=== PATIENT | female | born 1990 | race Hispanic/Latino ===

== ENCOUNTER 2019-05-19 05:30 | Inpatient (IN) | payer MEDICAID, OTHER, SELFPAY ==
[2019-05-20] MEDS ORDERED: NS w/ Oxytocin 10 units 500 ML ONE (09:28)
[2019-05-20] MEDS ORDERED: Lidocaine 1% (PF) 30 ML VIAL SC PRN (09:33)
[2019-05-20] MEDS ORDERED: Lactated Ringer's 1,000 ML IV SCH (09:33)
[2019-05-20] MEDS ORDERED: Promethazine HCl 25 MG/ML VIAL IM PRN (09:33)
[2019-05-20] MEDS ORDERED: Diphenoxylate HCl/Atropine Tablet PO PRN (09:33)
[2019-05-20] MEDS ORDERED: Ondansetron PF 4 MG/2 ML Vial IVP PRN ×2 (09:33→14:36)
[2019-05-20] MEDS ORDERED: Butorphanol Tartrate 1 MG/ML VIAL SLOW IVP PRN (09:33)
[2019-05-20] MEDS ORDERED: HYDROcodone/Acetaminophen 5/325 mg Tablet PO PRN ×2 (09:33→14:36)
[2019-05-20] MEDS ORDERED: Ibuprofen 800 MG TAB PO PRN (09:33)
[2019-05-20] MEDS ORDERED: Methylergonovine 0.2 MG/ML VIAL IM PRN (09:33)
[2019-05-20] MEDS ORDERED: NS / Oxytocin 40 units/1000ml 1,000 ML IV PRN (09:33)
[2019-05-20] MEDS ORDERED: Carboprost 250 MCG/ML AMP IM PRN (09:33)
[2019-05-20] MEDS ORDERED: hydrALAZINE 20 MG/ML VIAL SLOW IVP PRN ×2 (09:33→14:36)
[2019-05-20] MEDS ORDERED: Misoprostol 200 MCG TAB PR PRN (09:33)
[2019-05-20] MEDS ORDERED: NS w/ Oxytocin 10 units 500 ML IV SCH ×2 (09:33)
[2019-05-20 09:43] VITALS: BMI 23.1
[2019-05-20 10:12] LABS: Hemoglobin 12.6 g/dL (12.0-16.0); Mean Corpuscular Hemoglobin 28.9 pg (27.0-31.0); Mean Corpuscular Volume 84.9 fL (78.0-98.0); Mean Platelet Volume 10.3 fL (7.4-10.4); Platelet Count 167 thou/uL (130-400); RBC Distribution Width 13.1 % (11.5-14.5); Red Blood Cell (RBC) Count 4.34 mill/uL (4.20-5.40); White Blood Cell (WBC) Count 6.1 thou/uL (4.8-10.8)
[2019-05-20 10:46] LABS: Hep B Surf Ag Non-Reactive S/CO (NonReactive); Syphilis Antibody Nonreactive (Nonreactive); Syphilis Antibody Index 0.05 S/CO (<1.00 Non-Reactive)
[2019-05-20] MEDS ORDERED: Milk Of Magnesia 30 ML UDCUP PO PRN (14:36)
[2019-05-20] MEDS ORDERED: NS / Oxytocin 40 units/1000ml 1,000 ML IV SCH (14:36)
[2019-05-20] MEDS ORDERED: Lanolin Ointment 7 GM TUBE TOP PRN (14:36)
[2019-05-20] MEDS ORDERED: Bisacodyl 10 MG SUPP PR PRN (14:36)
[2019-05-20] MEDS ORDERED: Benzocaine-Menthol 82.5 ML CAN TOP PRN (14:36)
[2019-05-20] MEDS ORDERED: Adacel (T-DAP) 0.5 ML SYRINGE IM ONE (14:36)
[2019-05-20] MEDS: HYDROcodone/Acetaminophen 5/325 mg Tablet PO PRN ×2 (15:10→21:26)
[2019-05-20] MEDS: Ferrous Sulfate 325 MG TAB PO SCH (16:41)
[2019-05-20] MEDS: Ibuprofen 800 MG TAB PO SCH (17:50)
[2019-05-20] MEDS: Misoprostol 200 MCG TAB PO SCH (18:20)
[2019-05-20] MEDS: Docusate Calcium (SURFAK) 240 MG CAP PO SCH (21:24)
[2019-05-21] MEDS: Misoprostol 200 MCG TAB PO SCH (00:32)
[2019-05-21] MEDS: Ibuprofen 800 MG TAB PO SCH ×2 (05:30→13:29)
[2019-05-21 06:37] LABS: Hemoglobin 9.7 g/dL (12.0-16.0); Mean Corpuscular HGB CONC 34.3 g/dL (32.0-36.0); Mean Corpuscular Hemoglobin 28.9 pg (27.0-31.0); Mean Corpuscular Volume 84.3 fL (78.0-98.0); Mean Platelet Volume 9.7 fL (7.4-10.4); Platelet Count 136 thou/uL (130-400); RBC Distribution Width 12.7 % (11.5-14.5); Red Blood Cell (RBC) Count 3.33 mill/uL (4.20-5.40); White Blood Cell (WBC) Count 11.1 thou/uL (4.8-10.8)
[2019-05-21] MEDS: Docusate Calcium (SURFAK) 240 MG CAP PO SCH (08:32)
[2019-05-21] MEDS: Ferrous Sulfate 325 MG TAB PO SCH ×2 (08:32→16:44)
[2019-05-21] MEDS ORDERED: Prenatal Vitamin 1 TAB PO SCH (09:00)
[2019-05-21 19:54] VITALS: BP 105/64; TEMP 98.9
== END 2019-05-21 19:52 | disposition home or self-care (01) | DRG 807 ==
LOC: L&D 05-20 08:50 → 3SW 05-20 16:23
PROVIDERS: ADMIT Family Medicine; ATTEND Family Medicine
PROC: 10E0XZZ Delivery of Products of Conception, External Approach (ICD-10-PCS; principal; 2019-05-20)
PROC: 3E033VJ Introduction of Other Hormone into Peripheral Vein, Percutaneous Approach (ICD-10-PCS; 2019-05-20)
PROC: 10907ZC Drainage of Amniotic Fluid, Therapeutic from Products of Conception, Via Natural or Artificial Opening (ICD-10-PCS; 2019-05-20)
DX: O80 Encounter for full-term uncomplicated delivery (principal); Z37.0 Single live birth; Z3A.40 40 weeks gestation of pregnancy
CPT/HCPCS: 36415; 85027; 86780; 86850; 86900; 86901; 87340; J0595; J2590

== ENCOUNTER 2022-05-16 14:03 | Outpatient (CLI) | payer OTHER | END 2022-05-16 14:04 | disposition home or self-care (01) | LOC: BICULT 14:03 | PROVIDERS: ATTEND Family Medicine | DX: Z34.82 Encounter for supervision of other normal pregnancy, second trimester (principal); Z3A.21 21 weeks gestation of pregnancy | CPT/HCPCS: 76805 ==